=== PATIENT | female | born 1950 | race Caucasian/White ===

== ENCOUNTER 2021-09-28 15:50 | Outpatient (CLI) | payer OTHER | END 2021-09-28 15:51 | disposition home or self-care (01) | LOC: CSHULT 15:50 | PROVIDERS: ATTEND Otolaryngology Plastic Surgery within the Head & Neck | DX: E07.9 Disorder of thyroid, unspecified (principal) | CPT/HCPCS: 76536 ==

== ENCOUNTER 2023-05-04 12:03 | Outpatient (CLI) | payer MEDICARE ==
[2023-05-04] MEDS ORDERED: Iopamidol 370 76% 100 ML VIAL ONE (13:15)
== END 2023-05-04 12:04 | disposition home or self-care (01) ==
LOC: CSHCT 12:03
PROVIDERS: ATTEND Thoracic Surgery (Cardiothoracic Vascular Surgery)
DX: I71.40 Abdominal aortic aneurysm, without rupture, unspecified (principal); Z95.828 Presence of other vascular implants and grafts
CPT/HCPCS: 74174; 82565; Q9967